=== PATIENT | male | born 1975 | race Caucasian/White ===

== ENCOUNTER 2021-06-06 08:53 | Emergency (ER) | payer OTHER ==
[~2021-06-06] VITALS: Ht 185.4 cm; Wt 129.3 kg
[2021-06-06] MEDS ORDERED: ALBU90OI INH (09:42)
[2021-06-06] MEDS ORDERED: ONDA4ODT MM (09:42)
[2021-06-07] MEDS ORDERED: BENZ100A PO (14:56)
== END 2021-06-06 10:05 | disposition home or self-care (01) ==
LOC: ER 08:53
DX: U07.1 COVID-19 (principal); I10 Essential (primary) hypertension; Z99.89 Dependence on other enabling machines and devices
CPT/HCPCS: 96372; 99282-25; A9270; J1885

== ENCOUNTER 2021-06-07 14:11 | Emergency (ER) | payer OTHER ==
[~2021-06-07] VITALS: Ht 185.4 cm; Wt 129.3 kg
[~2021-06-07 14:11] MED LIST: ALBU90OI INH; ONDA4ODT MM
[2021-06-07] MEDS ORDERED: BENZ100A PO (14:56)
== END 2021-06-07 15:29 | disposition home or self-care (01) ==
LOC: ER 14:11
DX: U07.1 COVID-19 (principal); I10 Essential (primary) hypertension; Z79.899 Other long term (current) drug therapy
CPT/HCPCS: 99282